=== PATIENT | male | born 1975 | race Caucasian/White ===

== ENCOUNTER 2020-08-01 12:14 | Emergency (ER) | payer OTHER, SELFPAY ==
[2020-08-01 12:20] VITALS: BP 152/92; PULSE 65; RESP 16; TEMP 36.4; O2SAT 99
--- NOTE | 2020-08-01 14:15 | ED.SKABFB ---
HPI - Skin/Abscess/Foreign Bdy General Chief complaint: Skin/Abscess/Foreign Body Stated complaint: wound on R arm Time Seen by Provider: 08/01/20 12:28 Source: patient and RN notes reviewed Mode of arrival: ambulatory Limitations: no limitations History of Present Illness HPI narrative: Patient presents today complaining of ongoing wound to his right antecubital fossa x3 weeks. He has tried to pop it a couple of times as it appeared to be a pimple, but did not get any material out. States there is pain only occasionally, and it is mild. Denies history of staph, MRSA, abscesses, boils. He has applied Neosporin. States the area has been worsening, but is not getting better. 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 He has tried to keep it covered as well. MD complaint: lesion Related Data Allergies Allergy/AdvReac Type Severity Reaction Status Date / Time No Known Allergies Allergy Verified 08/01/20 12:33 Review of Systems Review of Systems: Narrative: CONSTITUTIONAL: Denies body aches, fever, chills, or sweats. EYES: Denies visual changes, redness, or discharge. ENT: Denies rhinorrhea, congestion, sore throat, or otalgia. CARDIOVASCULAR: Denies chest pain, palpitations, or edema. RESPIRATORY: Denies cough or dyspnea. GASTROINTESTINAL: Denies abdominal pain, nausea, vomiting, or diarrhea. GENITOURINARY: Denies dysuria or hematuria. SKIN: Denies rash, itching, or wounds.+ Lesion to right arm MUSCULOSKELETAL: Denies back pain, joint pain, or myalgia. NEUROLOGIC: Denies headache, numbness, tingling, or weakness. PSYCH: Denies depression or anxiety. PMFSH Comments At time of signature, I have reviewed and agree with nursing past medical, surgical, social and family history unless otherwise noted. Please see nursing chart for further information. There is no relevant family history pertinent to the presenting complaint Exam Narrative: Exam Narrative: GENERAL: Well-appearing, well-nourished, and in no acute distress. HEAD: Normocephalic, atraumatic. EYES: EOMI. No redness or drainage. Conjunctivae normal. ENT: Mucous membranes pink and moist. NECK: Normal AROM. CHEST: No respiratory distress. EXTREMITIES: Normal range of motion. No edema. SKIN: Warm, dry, no rash. Capillary refill normal. Normal skin turgor. 3 x 5 mm erythematous raised lesion with a cassidy to the right antecubital fossa with mild surrounding reviewed. Pt has been instructed to follow up with her PCP regarding her elevated blood pressure today. Difficult to tell if this area has any fluctuance. No induration noted. NEURO: No focal deficits. Alert and oriented x3. Gait steady. PSYCH: Normal affect. No signs of depression or anxiety. Course Vital Signs Vital signs: Vital Signs Temperature 97.5 F L 08/01/20 12:20 Pulse Rate 65 08/01/20 12:20 Respiratory Rate 16 08/01/20 12:20 Blood Pressure 152/92 H 08/01/20 12:20 Pulse Oximetry 99 08/01/20 12:20 Temperature 97.5 F L 08/01/20 12:20 Pulse Rate 65 08/01/20 12:20 Respiratory Rate 16 08/01/20 12:20 Blood Pressure 152/92 H 08/01/20 12:20 Pulse Oximetry 99 08/01/20 12:20 Reviewed. Pt has been instructed to follow up with his PCP regarding his elevated blood pressure today. Procedures Abscess I/D upper extremity: Date of Incision: 08/01/20 Time of Incision: 12:45 Side (if applicable): right Local Anesthetic: lidocaine 1% Amount of anesthesia used (mL): 0.5 Technique: incised with #11 blade Amount of fluid expressed (mL): 0 Irrigation: No Packing used?: none I&D Results: Blood Abcess I&D Additional Comments: wound culture obtained. MDM - Skin/Abscess/Foreign Bdy Differential Diagnosis Differential diagnosis: Likely abscess of skin or subcutaneous tissue Critical Care Time Critical Care Time Critical Care Time: No Discharge Plan Discharge Clinical
== END 2020-08-01 13:00 | disposition home or self-care (01) ==
PROVIDERS: Emergency Provider Nurse Practitioner; PCP Nurse Practitioner Family
DX: L98.9 Disorder of the skin and subcutaneous tissue, unspecified (principal); R03.0 Elevated blood-pressure reading, without diagnosis of hypertension
CPT/HCPCS: 10060; 87070; 87075; 87205; 99213; G0463

== ENCOUNTER 2020-10-11 18:24 | Emergency (ER) | payer OTHER, SELFPAY ==
[2020-10-11 18:27] VITALS: BP 156/91; PULSE 65; RESP 16; TEMP 36.4; O2SAT 100
--- NOTE | 2020-10-11 19:39 | PC.NURSE ---
Contacted lab, spoke with Reji, he stated the labs are still running.
[2020-10-11 19:54] VITALS: BP 140/90; PULSE 66; RESP 18; TEMP 37.1; O2SAT 100
--- NOTE | 2020-10-11 19:58 | ED.WOUNDLAC ---
HPI - Wound/Laceration General Chief Complaint: Wound/Laceration Stated Complaint: exposure to infection Time Seen by Provider: 10/11/20 18:59 History of Present Illness HPI narrative: Patient is a 45-year-old male who presents the ER with injury to his right index finger. 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 The child had a bite block and and had some bleeding from her palate and an area of her gums where she bit off some skin. The child been that the patient. He removed his hand from the child's mouth. He removed his glove and noted a small cut to his index finger that was bleeding. Patient then filled his glove with water and there were no leaks identified and does not appear that the PPE was violated. Patient came in here to have exposure lab work drawn so that he could reassure the child family that they had not been exposed to any communicable diseases. The child is not known to have any communicable diseases. Related Data Home Medications Medication Instructions Recorded Confirmed cholecalciferol (vitamin D3) 10 mcg PO DAILY 10/11/20 vitamin B complex [B 1 tablet PO DAILY 10/11/20 Complex-Vitamin B12] Allergies Allergy/AdvReac Type Severity Reaction Status Date / Time No Known Allergies Allergy Verified 10/11/20 18:30 Review of Systems Integumentary/Breasts: Comments: Abrasion right second digit near the cuticle Neurologic: Denies focal weakness and Denies numbness PMFSH Past Medical History Medical History (Updated 10/11/20 @ 20:10 by William Jo MD) Healthy adult male Surgical History Surgical History (Updated 10/11/20 @ 20:01 by William Jo MD) Subareolar gynecomastia in male with surgical excision. Social History Social History (Updated 10/11/20 @ 20:01 by William Jo MD) Smoking status: Never smoker Exam Narrative: Exam Narrative: GENERAL: Well-appearing, well-nourished, and in no acute distress. HEAD: Normocephalic, atraumatic. EXTREMITIES: Focused exam of the right hand reveals normal range of motion of the fingers and hand. There is a small 4 mm abrasion at the cuticle of the second digit that is not bleeding. No evidence of infection. NEURO: Alert and oriented x3. PSYCH: Normal mood and affect. Course Course Emergency Course: Patient informed results. Discharge home. Vital Signs Vital signs: Vital Signs Temperature 97.5 F L 10/11/20 18:27 Pulse Rate 65 10/11/20 18:27 Respiratory Rate 16 10/11/20 18:27 Blood Pressure 156/91 H 10/11/20 18:27 Pulse Oximetry 100 10/11/20 18:27 Temperature 98.8 F 10/11/20 19:54 Pulse Rate 66 10/11/20 19:54 Respiratory Rate 18 10/11/20 19:54 Blood Pressure 140/90 10/11/20 19:54 Pulse Oximetry 100 10/11/20 19:54 MDM - Wound/Laceration Lab Data Labs: Lab Results 10/11/20 10/11/20 10/11/20 Range/Units 18:50 19:01 19:12 Hep Bs Antigen Cancelled Negative Hepatitis C Ab Screen Cancelled Negative HIV 1&2 Ab/P24 Ag 4thGn Cancelled Negative Discharge Plan Discharge Clinical Impression: Abrasion Patient Disposition: Home, Self-Care Condition: Stable Instructions: Abrasion (ED) Additional Instructions: Your exposure lab work was all negative which is encouraging. Discussed with your doctor whether he should have follow-up labs drawn to ensure you do not convert to having positive blood work from your patient exposure. Return to the ER if your finger is red and hot and swollen, your wound is draining pus, or you have fever over 100.4 ?F. Prescriptions: No Action vitamin B complex [B Complex-Vitamin B12] Tablet 1 tablet PO DAILY RF: 0 cholecalciferol (vitamin D3) 10 mcg (400 unit) Tablet 10 mcg PO DAILY RF: 0 Follow-up/Referrals: WALT,SHEEBA GUZMAN [Primary Care Provider] - 1 Week
[2020-10-11 20:03] LABS: Hepatitis B Surface Antigen Negative (Negative); Hepatitis C Virus Antibody Negative (Negative)
[2020-10-11 20:04] LABS: HIV 1/2 Ab P24 Ag Result Negative (Negative)
== END 2020-10-11 20:15 | disposition home or self-care (01) ==
PROVIDERS: Emergency Provider Emergency Medicine; PCP Nurse Practitioner Family
DX: S60.410A Abrasion of right index finger, initial encounter (principal); W50.3XXA Accidental bite by another person, initial encounter
CPT/HCPCS: 36415; 86703; 86803; 87340; 99283; G0432

== ENCOUNTER 2023-05-14 19:56 | Emergency (ER) | payer OTHER, SELFPAY ==
[2023-05-14 20:10] VITALS: BP 149/90; PULSE 58; RESP 16; TEMP 36.6; O2SAT 100
--- NOTE | 2023-05-14 20:54 | ED.URI ---
HPI - URI/Sore Throat General Chief Complaint: Upper Respiratory Infection Stated Complaint: Sinus infection symptoms Time Seen by Provider: 05/14/23 20:46 Source: patient and RN notes reviewed Mode of arrival: ambulatory Limitations: no limitations History of Present Illness HPI Narrative: Patient presents today with a 3-4 week history of cough that has been waxing and waning since onset. Reports cough has worsened today with postnasal drainage. He does report some occasional mild shortness of breath, primarily with exertion. Denies fever. One month ago he was treated with a Z-Donald, which he states improved his symptoms, but then the quickly returned. Denies history of asthma or COPD. He is a nonsmoker. He has been taking cold and flu medication with short-term relief. Related Data Home Medications Medication Instructions Recorded Confirmed cholecalciferol (vitamin D3) 10 10 mcg PO DAILY 10/11/20 mcg (400 unit) tablet vitamin B complex (B 1 tablet PO DAILY 10/11/20 Complex-Vitamin B12 tablet) Allergies Allergy/AdvReac Type Severity Reaction Status Date / Time No Known Allergies Allergy Verified 10/11/20 18:30 Review of Systems Review of Systems: CONSTITUTIONAL: Denies body aches, fever, chills, or sweats. EYES: Denies visual changes, redness, or discharge. ENT: Denies rhinorrhea, congestion, sore throat, or otalgia.+ postnasal drip CARDIOVASCULAR: Denies chest pain, palpitations, or edema. RESPIRATORY: + cough, shortness of breath GASTROINTESTINAL: Denies abdominal pain, nausea, vomiting, or diarrhea. GENITOURINARY: Denies dysuria or hematuria. SKIN: Denies rash, itching, or wounds. MUSCULOSKELETAL: Denies back pain, joint pain, or myalgia. NEUROLOGIC: Denies headache, numbness, tingling, or weakness. PSYCH: Denies depression or anxiety. [facility] Past Medical History Medical History Healthy adult male Surgical History Surgical History Subareolar gynecomastia in male with surgical excision. Social History Social History Smoking status: Never smoker Comments At time of signature, I have reviewed and agree with nursing past medical, surgical, social and family history unless otherwise noted. Please see nursing chart for further information. There is no relevant family history pertinent to the presenting complaint Exam Narrative: GENERAL: Well-appearing, well-nourished, and in no acute distress. HEAD: Normocephalic, atraumatic. EYES: EOMI. No redness or drainage. Conjunctivae normal. ENT: Mucous membranes pink and moist. Nares clear. No rhinorrhea. TMs normal bilaterally. Throat mildly erythematous posteriorly with moderate amount of postnasal drainage. Uvula midline. NECK: Normal AROM. Supple. No lymphadenopathy. CHEST: No respiratory distress. Clear to auscultation. HEART: Regular rate and rhythm. No murmur appreciated. Normal peripheral pulses. EXTREMITIES: Normal range of motion. No edema. SKIN: Warm, dry, no rash. Capillary refill normal. Normal skin turgor. NEURO: No focal deficits. Alert and oriented x3. Gait steady. PSYCH: Normal affect. No signs of depression or anxiety. Course Course Level of Care: Express Care Visit Vital Signs Vital signs: Vital Signs Temperature 98 F 05/14/23 20:10 Pulse Rate 58 L 05/14/23 20:10 Respiratory Rate 16 05/14/23 20:10 Blood Pressure 149/90 H 05/14/23 20:10 Pulse Oximetry 100 05/14/23 20:10 Temperature 98 F 05/14/23 20:10 Pulse Rate 58 L 05/14/23 20:10 Respiratory Rate 16 05/14/23 20:10 Blood Pressure 149/90 H 05/14/23 20:10 Pulse Oximetry 100 05/14/23 20:10 Reviewed. Pt has been instructed to follow up with his PCP regarding his elevated blood pressure today. MDM - URI/Sore Throat MDM Narrative Medical d
== END 2023-05-14 20:58 | disposition home or self-care (01) ==
PROVIDERS: Emergency Provider Nurse Practitioner
DX: J32.9 Chronic sinusitis, unspecified (principal); J40 Bronchitis, not specified as acute or chronic
CPT/HCPCS: 99213; G0463

== ENCOUNTER 2023-06-04 11:30 | Outpatient (CLI) | payer OTHER, SELFPAY ==
[2023-06-04 12:20] LABS: Basophils Percent Auto 0.5 % (0.2-1.2); Eosinophils Absolute Auto 0.4 K/mm3 (0-0.3); Eosinophils Percent Auto 6.7 % (0-4.4); Hematocrit 45.4 % (42.0-52.0); Hemoglobin 14.9 g/dL (14.0-18.0); Immature Granulocyte Absolute 0.02 K/mm3 (0.00-0.031); Immature Granulocyte Percent A 0.4 % (0-0.5); Lymphocytes Absolute Auto 1.57 K/mm3 (0.9-3.2); Lymphocytes Percent Auto 28.2 % (18.3-44.2); Mean Corpuscular HGB Conc 32.8 g/dl (32-36); Mean Corpuscular Hemoglobin 29.8 pg (26-34); Mean Corpuscular Volume 90.8 fl (80-100); Mean Platelet Volume 10.5 fl (7.4-10.4); Monocytes Absolute Auto 0.5 K/mm3 (0.1-0.6); Monocytes Percent Auto 9.5 % (2.6-8.5); Neutrophils Percent Auto 54.7 % (45.5-73.1); Platelet Count Result 202 k/mm3 (150-375); Red Cell Distribution Width 11.9 % (11.5-14.5); White Blood Count 5.6 K/mm3 (4.5-10.0)
[2023-06-04 12:34] LABS: Potassium 4.1 mmol/L (3.4-5.0)
[2023-06-04 12:38] LABS: Alanine Aminotransferase 30 U/L (6-50); Albumin Level 4.6 g/dL (3.5-5.1); Alkaline Phosphatase 69 U/L (38-126); Anion Gap 5 mmol/L (8-16); Aspartate Amino Transferase 26 U/L (17-59); Bilirubin,Total 0.8 mg/dL (0.2-1.3); Blood Urea Nitrogen 18 mg/dL (9-20); Calcium 9.1 mg/dL (8.4-10.2); Carbon Dioxide 32 mmol/L (22-30); Chloride 102 mmol/L (98-107); Cholesterol 220 mg/dL (0-200); Estimated Glomerular Filt Rate > 60; Glucose 87 mg/dL (65-110); HDL Direct 81 mg/dL; Sodium 139 mmol/L (137-145); Triglycerides 52 mg/dL (<150)
[2023-06-04 12:46] LABS: LDL Cholesterol Direct 109 mg/dL
[2023-06-04 13:05] LABS: Prostate Specific Antigen 1.3 ng/mL (< OR = 4.0)
== END 2023-06-04 11:31 | disposition home or self-care (01) ==
LOC: ANHLAB 11:32
PROVIDERS: PCP Nurse Practitioner Family; Visit Provider Nurse Practitioner Family
DX: Z13.228 Encounter for screening for other metabolic disorders (principal); Z13.0 Encounter for screening for diseases of the blood and blood-forming organs and certain disorders involving the immune mechanism; R35.1 Nocturia; F41.9 Anxiety disorder, unspecified; Z13.29 Encounter for screening for other suspected endocrine disorder; Z13.220 Encounter for screening for lipoid disorders
CPT/HCPCS: 36415; 80053; 80061; 84153; 84443; 85025

== ENCOUNTER 2023-11-23 03:11 | Day surgery (SDC) | payer OTHER, SELFPAY ==
[2023-11-09 12:35] VITALS: BMI 26.5
--- NOTE | 2023-11-23 11:41 | P.PNAN_ITS ---
Anes - Initial Pre Proc Eval Procedure: Operation Date: 11/23/23 13:00 Proposed Procedures p Colonoscopy - James Wick MD Date/Time: 11/23/23 11:41 Surgeon: James Wick MD Pre Op Diagnosis: neoplasm screening Patient Data Age: 48 Gender: M Height: 1.68 m Weight: 74.5 kg Allergies Allergy/AdvReac Type Severity Reaction Status Date / Time No Known Allergies Allergy Verified 11/23/23 11:41 Home Medications Medication Instructions Recorded Confirmed Type bupropion HCl 300 mg 24 hr tablet, 300 mg PO QAM #90 tabs 09/04/23 11/23/23 Rx extended release Patient hx anesthesia problems: none Family hx anesthesia problems: none Results Review: All pre-operative results and documents have been reviewed as part of the pre- operative evaluation. [facility] Past Medical History Medical History Allergies Anxiety Asthma Healthy adult male Surgical History Surgical History Subareolar gynecomastia in male with surgical excision. Family History Family History Mother Carcinoma of colon Hypertension Sibling Asthma Grandparent Hypertension Depression Anxiety Social History Social History Smoking packs per day: 0 Smoking cigarettes per day: 0.0 Years smoked: 0 Smoking pack-years: 0.00 Smoking status: Never smoker Alcohol intake: current Drinks per week: 6 Substance use: never Substance use type: does not use Living arrangements: with family Spiritual care concerns: No Anes - Eval Final PreProcedure Day of Procedure 11/23/23 11:41 Patient weight: normal Heart: regular rate and rhythm Lungs: clear to auscultation Airway: Mallampati scale class II Neurological: alert and oriented Last oral intake: >/= 8 hours ASA classification: II Emergent: no Anesthetic plan: proceed Anesthesia type and monitoring: general GIVS and standard monitoring Results Review: All pre-operative results and documents have been reviewed as part of the pre- operative evaluation. Informed Consent: The patient's anesthetic plan and its attendant risks and benefits were discussed with the patient/family/POA. Questions were solicited and answers provided to the satisfaction of the patient/family/POA.
[2023-11-23 11:43] VITALS: BP 150/94; PULSE 50; RESP 18; TEMP 36.5; O2SAT 100
[2023-11-23] MEDS: LACTATED RINGERS 1,000 ML 150 ML IV CONT (11:54)
--- NOTE | 2023-11-23 13:08 | PM.HPGS ---
History of Present Illness History of Present Illness Consent: Risks, benefits, and alternatives have been discussed and questions answered. Patient agrees to proceed with procedure. Chief complaint: neoplasm screening Narrative: Otis Velez is a 48 year old male here for screening colonoscopy, had one about 15 years ago Review of Systems Review of Systems: All systems reviewed & are unremarkable except as noted in HPI and below PMFSH Past Medical History Medical History (Updated 11/23/23 @ 13:08 by James Wick MD) Allergies Anxiety Asthma Colon cancer screening Healthy adult male Surgical History Surgical History Subareolar gynecomastia in male with surgical excision. Family History Family History Mother Carcinoma of colon Hypertension Sibling Asthma Grandparent Hypertension Depression Anxiety Social History Social History Smoking packs per day: 0 Smoking cigarettes per day: 0.0 Years smoked: 0 Smoking pack-years: 0.00 Smoking status: Never smoker Alcohol intake: current Drinks per week: 6 Substance use: never Substance use type: does not use Living arrangements: with family Spiritual care concerns: No Meds Home Medications and Allergies Home Medications Medication Instructions Recorded Confirmed Type bupropion HCl 300 mg 24 hr tablet, 300 mg PO QAM #90 tabs 09/04/23 11/23/23 Rx extended release Allergies Allergy/AdvReac Type Severity Reaction Status Date / Time No Known Allergies Allergy Verified 11/23/23 11:41 Vital Signs Vital Signs - 24 hr 11/23/23 11:43 Temperature 97.7 F Pulse Rate 50 L Respiratory Rate 18 Blood Pressure 150/94 H Pulse Oximetry 100 Oxygen Delivery Room Air Exam Const: General: comfortable and no acute distress HENMT: Face/Nose/Sinus: Normal nares present Eyes: General: appearance normal, both eyes and all related structures Neck: Neck: no JVD Resp: Auscultation: clear to auscultation bilaterally Cardio: Rate: regular rate Rhythm: regular rhythm GI: Inspection: non-distended GI Palp: Yes Soft to palpation Skin: General skin exam: normal color Neuro: General: gait normal Speech: normal speech Extrem: General: normal to inspection Psych: Mental Status: mental status grossly normal Assessment and Plan Assessment and plan (1) Colon cancer screening: Code(s): Z12.11 - Encounter for screening for malignant neoplasm of colon Status: Acute Assessment and Plan: colonoscopy
[2023-11-23 13:21] VITALS: BP 124/82; PULSE 57; RESP 18; O2SAT 100
[2023-11-23 13:31] VITALS: BP 131/86; PULSE 55; RESP 20; O2SAT 100
[2023-11-23 13:41] VITALS: BP 145/89; PULSE 54; RESP 21; O2SAT 100
== END 2023-11-23 13:56 | disposition home or self-care (01) ==
PROVIDERS: PCP Nurse Practitioner Family; Visit Provider Internal Medicine Gastroenterology
PROC: 0DJD8ZZ Inspection of Lower Intestinal Tract, Via Natural or Artificial Opening Endoscopic (ICD-10-PCS; CPT 45378; principal; 2023-11-23 13:00)
DX: Z12.11 Encounter for screening for malignant neoplasm of colon (principal); K64.8 Other hemorrhoids; F41.9 Anxiety disorder, unspecified; J45.909 Unspecified asthma, uncomplicated; Z98.890 Other specified postprocedural states; Z80.0 Family history of malignant neoplasm of digestive organs
CPT/HCPCS: 45378; J2704; J7120